=== PATIENT | male | born 1985 | race Hispanic/Latino ===

== ENCOUNTER 2018-10-31 20:53 | Emergency (ER) | payer SELFPAY ==
[~2018-10-31] VITALS: Ht 177.8 cm; Wt 102.5 kg
[2018-10-31] MEDS ORDERED: ORPHENADRINE CITRATE 30 MG/ML VIAL IM ONE (21:00)
[2018-10-31] MEDS ORDERED: KETOROLAC TROMETHAMINE 60 MG/2 ML VIAL IM ONE (21:00)
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
--- NOTE | 2018-10-31 22:14 | Diagnostic Imaging Report ---
Thoracic Spine - 3 view(s) HISTORY: Pain COMPARISON: None FINDINGS: Superimposed structures and attenuation partially limit bone detail. The alignment is normal. No displaced fracture or compression deformity is identified. The disc spaces are well-maintained. IMPRESSION: No acute radiographic abnormality. Signed by: Dr. Didier Chowdhury M.D. on 10/31/2018 10:10 PM
== END 2018-10-31 22:32 | disposition home or self-care (01) ==
LOC: ER 20:53
DX: S16.1XXA Strain of muscle, fascia and tendon at neck level, initial encounter (principal); S33.5XXA Sprain of ligaments of lumbar spine, initial encounter; S23.3XXA Sprain of ligaments of thoracic spine, initial encounter; V43.52XA Car driver injured in collision with other type car in traffic accident, initial encounter; Y93.89 Activity, other specified; Y92.410 Unspecified street and highway as the place of occurrence of the external cause; Z88.2 Allergy status to sulfonamides; Z83.3 Family history of diabetes mellitus; Z82.49 Family history of ischemic heart disease and other diseases of the circulatory system
CPT/HCPCS: 72040; 72070; 72100; 99283; J1885; J2360

== ENCOUNTER → 2021-01-09 | Outpatient (CLI) | payer OTHER ==
[~2021-01-09] MED LIST: COVID-19 VAC,AD26(JANSSEN)/PF 2.5 ML VIAL IM ONE
== END ==
LOC: VACCPMC 10:09
DX: Z23 Encounter for immunization (principal); Z20.822 Contact with and (suspected) exposure to COVID-19
CPT/HCPCS: 91303

== ENCOUNTER 2021-04-17 10:01 | Emergency (ER) | payer SELFPAY ==
[~2021-04-17] VITALS: Ht 177.8 cm; Wt 102.5 kg
== END 2021-04-17 10:12 | disposition home or self-care (01) ==
LOC: ER 10:03
DX: L03.012 Cellulitis of left finger (principal)
CPT/HCPCS: 99283